=== PATIENT | female | born 1955 | race Hispanic/Latino ===

== ENCOUNTER 2024-08-30 18:36 | Inpatient (IN) | payer MEDICARE, OTHER ==
[~2024-08-30] VITALS: Ht 160 cm; Wt 154.2 kg
[2024-08-30 20:02] VITALS: PULSE 88; RESP 16; TEMP 98
[2024-08-30] MEDS: ONDANSETRON HCL INJ 2MG/ML 2ML 2 MG/ML VIAL IV ONE (20:24)
[2024-08-30] MEDS: LACTATED RINGER'S 1,000 ML INJ ONE (20:25)
[2024-08-30] MEDS: KETOROLAC TROMETHAMINE 30 MG/ML VIAL IV STA (21:13)
[2024-08-30] MEDS: SODIUM CHLORIDE 0.9% 1000ML 1,000 ML IV STA (21:14)
[2024-08-30] MEDS: FAMOTIDINE 20 MG/2 ML VIAL IV ONE (21:14)
[2024-08-30] MEDS: CEFTRIAXONE 1 GM VIAL IV ONE (21:14)
[2024-08-30] MEDS ORDERED: DEXTROSE 50% SYRINGE 50 ML IV PRN (22:45)
[2024-08-30] MEDS ORDERED: DIPHENHYDRAMINE HCL INJ 50 MG/ML VIAL IV PRN (22:45)
[2024-08-30] MEDS ORDERED: HYDRALAZINE HCL 20 MG/ML VIAL IV PRN (22:45)
[2024-08-30] MEDS ORDERED: CLONIDINE HCL 0.2 MG TAB PO PRN (22:45)
[2024-08-30] MEDS: SODIUM CHLORIDE 0.45% 1,000 ML IV SCH (23:24)
[2024-08-31] VITALS (7 sets, daily range): BP systolic 118–134; BP diastolic 55–69; PULSE 65–73; RESP 17–20; TEMP 97.7–98.8; O2SAT 97–100
[2024-08-31 00:11] LABS: CLARITY,URINE TURBID (CLEAR); COLOR,URINE RED (YELLOW); LEUKOCYTE ESTERASE ,URINE LARGE (NEGATIVE); PH,URINE 6 (5 - 7)
[2024-08-31 00:12] LABS: BACTERIA,URINE MANY /HPF; BILIRUBIN,URINE LARGE (NEGATIVE); EPITHELIAL CELLS,URINE FEW /LPF; GLUCOSE, URINE NEGATIVE (NEGATIVE); KETONES,URINE 1+ (NEGATIVE); NITRITE,URINE NEGATIVE (NEGATIVE); PROTEIN,URINE DIPSTICK >=300 (NEGATIVE); RBC,URINE >50 /HPF (0-5); WBC,URINE (MAN) 21-50 /HPF (0-5)
[2024-08-31 00:13] LABS: CALCIUM OXALATE CRYSTALS,UR MODERATE (FEW)
[2024-08-31] MEDS: KETOROLAC TROMETHAMINE 30 MG/ML VIAL IV PRN (02:13)
[2024-08-31] MEDS: ZOLPIDEM TARTRATE 5 MG TAB PO PRN (02:14)
[2024-08-31] MEDS ORDERED: NEURONTIN400 MG PO (04:25)
[2024-08-31] MEDS ORDERED: ATORVASTATIN CA20 MG PO (04:30)
[2024-08-31] MEDS ORDERED: OMEPRAZOLE40 MG PO (04:30)
[2024-08-31] MEDS ORDERED: TYLENOL325 MG PO (04:30)
[2024-08-31] MEDS ORDERED: ELIQUIS5 MG PO (04:30)
[2024-08-31] MEDS ORDERED: METOPROLOL SUCC25 MG PO (04:30)
[2024-08-31] MEDS: INSULIN REGULAR, HUMAN 100 UNIT/1 ML SQ SCH (07:30)
[2024-08-31] MEDS ORDERED: SODIUM CHLORIDE 0.45% 1,000 ML IV SCH (08:00)
[2024-08-31 08:30] LABS: BASOPHILS # (AUTO) 0.1 (0.0-0.1); BASOPHILS % 0.7 % (0.0-1.0); EOSINOPHILS # (AUTO) 0.4 (0.0-0.4); EOSINOPHILS % 4.2 % (0.0-6.0); HEMOGLOBIN 13.6 g/dL (12.0-16.0); LYMPHOCYTES # (AUTO) 2.2 (1.0-3.2); LYMPHOCYTES % 24.6 % (18.0-39.1); MEAN CORPUSCULAR HEMOGLOBIN 28.5 pg (28-32); MEAN CORPUSCULAR HGB CONC 30.9 g/dL (31-35); MEAN CORPUSCULAR VOLUME 92.2 fL (81-99); MONOCYTES # (AUTO) 0.6 (0.2-0.8); MONOCYTES % 6.6 % (4.4-11.3); NEUTROPHILS # (AUTO) 5.7 (2.1-6.9); NEUTROPHILS % 63.5 % (38.7-80.0); PLATELET COUNT 132 x10e3/uL (140-360); RED BLOOD COUNT 4.77 x10e6/uL (3.6-5.1); RED CELL DISTRIBUTION WIDTH 15.1 % (11.7-14.4); WHITE BLOOD COUNT 9.04 x10e3/uL (4.8-10.8)
[2024-08-31] MEDS ORDERED: ONDANSETRON HCL INJ 2MG/ML 2ML 2 MG/ML VIAL IV PRN (08:30)
[2024-08-31] MEDS ORDERED: FAMOTIDINE 20 MG/2 ML VIAL IV SCH (09:00)
[2024-08-31] MEDS ORDERED: CEFTRIAXONE 1 GM VIAL IV SCH (09:00)
[2024-08-31 09:17] LABS: CALCIUM 9.1 mg/dL (8.4-10.2); CREATININE, SERUM 1.1 mg/dL (0.57-1.11)
[2024-08-31] MEDS: GABAPENTIN 300 MG CAP PO SCH (09:28)
[2024-08-31] MEDS: ACETAMINOPHEN 325 MG TAB PO SCH (09:29)
[2024-08-31] MEDS: PANTOPRAZOLE SODIUM 20 MG TABLET.DR PO SCH (09:29)
[2024-08-31] MEDS: METOPROLOL SUCCINATE 25 MG TAB XL PO SCH (09:29)
[2024-08-31] MEDS: ENOXAPARIN SODIUM INJ 100 MG/ML SYR SC SCH (09:30)
[2024-08-31] MEDS: FLUCONAZOLE 100 MG TAB PO ONE (09:30)
[2024-08-31] MEDS: NYSTATIN/TRIAMCINOLONE 30 GM CR TOP SCH (09:30)
[2024-08-31 09:32] LABS: PLATELET ESTIMATE ADEQUATE; PLATELET MORPHOLOGY COMMENT FEW LARGE; RBC MORPHOLOGY COMMENT NORMAL
[2024-08-31] MEDS: SODIUM CHLORIDE 0.9% 250ML 250 ML ONE (09:33)
[2024-08-31] MEDS: ATORVASTATIN 40 MG TAB PO SCH (21:25)
[2024-09-01] VITALS (8 sets, daily range): BP systolic 103–145; BP diastolic 48–74; PULSE 62–89; RESP 17–21; TEMP 97.8–98.4; O2SAT 96–100
[2024-09-01] MEDS: FLUCONAZOLE 100 MG TAB PO SCH (09:57)
[2024-09-01] MEDS: BENZONATATE 100 MG CAP PO PRN (17:26)
[2024-09-01] MEDS: ALBUTEROL/IPRATROPIUM 3 ML NEB NEB SCH (20:12)
[2024-09-02] VITALS (13 sets, daily range): BP systolic 110–131; BP diastolic 37–54; PULSE 68–100; RESP 16–20; TEMP 98.1–98.9; O2SAT 93–100
[2024-09-02 04:58] LABS: BASOPHILS % 0.4 % (0.0-1.0); EOSINOPHILS # (AUTO) 0.4 (0.0-0.4); EOSINOPHILS % 5.1 % (0.0-6.0); HEMATOCRIT 42.7 % (34.2-44.1); HEMOGLOBIN 13.4 g/dL (12.0-16.0); LYMPHOCYTES # (AUTO) 0.7 (1.0-3.2); LYMPHOCYTES % 8.2 % (18.0-39.1); MEAN CORPUSCULAR HEMOGLOBIN 28.6 pg (28-32); MEAN CORPUSCULAR HGB CONC 31.4 g/dL (31-35); MEAN CORPUSCULAR VOLUME 91.2 fL (81-99); MONOCYTES # (AUTO) 0.6 (0.2-0.8); MONOCYTES % 6.7 % (4.4-11.3); NEUTROPHILS # (AUTO) 6.5 (2.1-6.9); NEUTROPHILS % 79.2 % (38.7-80.0); PLATELET COUNT 153 x10e3/uL (140-360); RED BLOOD COUNT 4.68 x10e6/uL (3.6-5.1); RED CELL DISTRIBUTION WIDTH 14.9 % (11.7-14.4); WHITE BLOOD COUNT 8.21 x10e3/uL (4.8-10.8)
[2024-09-02 05:23] LABS: CALCIUM 9.1 mg/dL (8.4-10.2); CREATININE, SERUM 1.14 mg/dL (0.57-1.11)
[2024-09-03] VITALS (13 sets, daily range): BP systolic 108–127; BP diastolic 39–67; PULSE 73–98; RESP 16–20; TEMP 97.7–100; O2SAT 94–100
[2024-09-03 05:18] LABS: ANION GAP 11.9 mmol/L (8-16); CALCIUM 8.9 mg/dL (8.4-10.2); CREATININE, SERUM 1.08 mg/dL (0.57-1.11); POTASSIUM 3.9 mmol/L (3.5-5.1)
[2024-09-03] MEDS ORDERED: LIDOCAINE HCL 2% LOCAL INJ 5 ML SDV VIAL INJ ONE (06:36)
[2024-09-03] MEDS ORDERED: PROPOFOL IV EMULSION 10 MG/ML 20 ML VIAL ONE ×2 (06:36→07:02)
[2024-09-03] MEDS ORDERED: ROCURONIUM BROMIDE 1 ML IV ONE (06:54)
[2024-09-03] MEDS ORDERED: FENTANYL CITRATE/PF 100MCG/2 ML INJ ONE ×2 (06:54→07:18)
[2024-09-03] MEDS ORDERED: SUCCINYLCHOLINE CHLORIDE 20 MG/ML 10ML VIAL ONE (06:54)
[2024-09-03] MEDS ORDERED: ONDANSETRON HCL INJ 2MG/ML 2ML 2 MG/ML VIAL ONE (07:07)
[2024-09-03] MEDS ORDERED: ACETAMINOPHEN 1000 MG/100 ML 100 ML IV ONE (07:07)
[2024-09-03] MEDS ORDERED: PHENYLEPHRINE HCL 1% 10 MG/ML VIAL ONE (07:15)
[2024-09-03] MEDS ORDERED: SEVOFLURANE INHAL SOLN 250 ML PEN BTL ONE (07:15)
[2024-09-03] MEDS ORDERED: SODIUM CHLORIDE 0.9% INJ 10 ML VIAL ONE (07:15)
[2024-09-03] MEDS ORDERED: EPHEDRINE SULFATE INJ 50 MG/ML VIAL ONE (07:27)
[2024-09-03] MEDS: GABAPENTIN 300 MG CAP PO SCH (22:12)
[2024-09-03] MEDS: NYSTATIN/TRIAMCINOLONE 30 GM CR TOP SCH (22:13)
[2024-09-04] VITALS (10 sets, daily range): BP systolic 99–114; BP diastolic 44–92; PULSE 75–123; RESP 16–25; TEMP 98–102; O2SAT 94–100
[2024-09-04] MEDS: ACETAMINOPHEN 325 MG TAB PO PRN (03:00)
[2024-09-04] MEDS ORDERED: ALBUTEROL/IPRATROPIUM 3 ML NEB NEB PRN (08:30)
[2024-09-04] MEDS ORDERED: HYDROCODONE/APAP 10MG-325MG TAB PO PRN (08:30)
[2024-09-04] MEDS: ALBUTEROL/IPRATROPIUM 3 ML NEB NEB SCH (09:33)
[2024-09-04] MEDS: KETOROLAC TROMETHAMINE 30 MG/ML VIAL IV PRN (10:40)
[2024-09-05] VITALS (10 sets, daily range): BP systolic 109–152; BP diastolic 43–46; PULSE 72–83; RESP 18–20; TEMP 98–98.8; O2SAT 93–99
[2024-09-05 05:03] LABS: BASOPHILS % 0.2 % (0.0-1.0); EOSINOPHILS # (AUTO) 0.1 (0.0-0.4); EOSINOPHILS % 3.3 % (0.0-6.0); HEMATOCRIT 38.1 % (34.2-44.1); HEMOGLOBIN 11.7 g/dL (12.0-16.0); LYMPHOCYTES # (AUTO) 0.9 (1.0-3.2); LYMPHOCYTES % 20.4 % (18.0-39.1); MEAN CORPUSCULAR HEMOGLOBIN 28.4 pg (28-32); MEAN CORPUSCULAR HGB CONC 30.7 g/dL (31-35); MEAN CORPUSCULAR VOLUME 92.5 fL (81-99); MONOCYTES # (AUTO) 0.4 (0.2-0.8); NEUTROPHILS # (AUTO) 2.8 (2.1-6.9); NEUTROPHILS % 65.6 % (38.7-80.0); PLATELET COUNT 122 x10e3/uL (140-360); RED BLOOD COUNT 4.12 x10e6/uL (3.6-5.1); RED CELL DISTRIBUTION WIDTH 15.9 % (11.7-14.4); WHITE BLOOD COUNT 4.21 x10e3/uL (4.8-10.8)
[2024-09-05 05:26] LABS: CALCIUM 8.8 mg/dL (8.4-10.2); CREATININE, SERUM 1.03 mg/dL (0.57-1.11); POTASSIUM 4.5 mmol/L (3.5-5.1)
[2024-09-05 05:41] LABS: ANION GAP 13.5 mmol/L (8-16)
[2024-09-05] MEDS: APIXABAN 5 MG TABLET PO SCH (10:36)
[2024-09-05] MEDS: ZOLPIDEM TARTRATE 5 MG TAB PO PRN (21:21)
[2024-09-06 04:46] VITALS: BP 151/71; PULSE 76; RESP 20; TEMP 97.3; O2SAT 94
[2024-09-06 08:11] VITALS: BP 132/59; PULSE 70; RESP 18; TEMP 98.7; O2SAT 94
[2024-09-06 08:52] VITALS: PULSE 70; RESP 18; O2SAT 94
[2024-09-06 09:00] VITALS: BP 132/54; PULSE 70; RESP 18; TEMP 97.7; O2SAT 94
[2024-09-06 09:07] VITALS: PULSE 70; RESP 18; O2SAT 98
== END 2024-09-06 14:41 | disposition home or self-care (01) | DRG 699 ==
LOC: FSED 18:39 → ERHOLD 20:48 → MED/SURG 22:47
PROVIDERS: ADMIT Internal Medicine; ATTEND Internal Medicine
PROC: BT161ZZ Fluoroscopy of Right Ureter using Low Osmolar Contrast (ICD-10-PCS; 2024-09-03)
PROC: 0TF68ZZ Fragmentation in Right Ureter, Via Natural or Artificial Opening Endoscopic (ICD-10-PCS; principal; 2024-09-03 06:56)
PROC: 0TP98DZ Removal of Intraluminal Device from Ureter, Via Natural or Artificial Opening Endoscopic (ICD-10-PCS; 2024-09-03 06:56)
DX: T83.593A Infection and inflammatory reaction due to other urinary stents, initial encounter (principal); L03.115 Cellulitis of right lower limb; E66.01 Morbid (severe) obesity due to excess calories; Z68.44 Body mass index [BMI] 60.0-69.9, adult; N12 Tubulo-interstitial nephritis, not specified as acute or chronic; N13.6 Pyonephrosis; E11.42 Type 2 diabetes mellitus with diabetic polyneuropathy; B96.20 Unspecified Escherichia coli [E. coli] as the cause of diseases classified elsewhere; I10 Essential (primary) hypertension; E87.5 Hyperkalemia; R31.0 Gross hematuria; I89.0 Lymphedema, not elsewhere classified; R32 Unspecified urinary incontinence; I87.8 Other specified disorders of veins; N28.89 Other specified disorders of kidney and ureter; R53.81 Other malaise; Y84.6 Urinary catheterization as the cause of abnormal reaction of the patient, or of later complication, without mention of misadventure at the time of the procedure; Z79.01 Long term (current) use of anticoagulants; Z88.1 Allergy status to other antibiotic agents; Z88.2 Allergy status to sulfonamides; Z91.198 Patient's noncompliance with other medical treatment and regimen for other reason
CPT/HCPCS: 36415; 74176; 74420; 80048; 80053; 81001; 81003; 82948; 85025; 87040; 87086; 87186; 94640; 94799; 96372; 96374; 99252; 99284; C1758; C1769; J0330; J0696; J1650; J1885; J2003; J2371; J2405; J7030; J7050

== ENCOUNTER 2024-09-22 19:07 | Emergency (ER) | payer MEDICARE, OTHER ==
[~2024-09-22] VITALS: Ht 160 cm; Wt 154.2 kg
[~2024-09-22 19:07] MED LIST: ATORVASTATIN CA20 MG PO; ELIQUIS5 MG PO; METOPROLOL SUCC25 MG PO; NEURONTIN400 MG PO; OMEPRAZOLE40 MG PO; TYLENOL325 MG PO
[2024-09-22 19:30] VITALS: PULSE 97; RESP 20; TEMP 98.2
[2024-09-22] MEDS ORDERED: CEFDINIR300 MG PO (19:50)
[2024-09-22 19:56] VITALS: BP 132/60; O2SAT 100
== END 2024-09-22 19:55 | disposition home or self-care (01) ==
LOC: FSED 19:51
DX: R35.0 Frequency of micturition (principal); N39.0 Urinary tract infection, site not specified; I10 Essential (primary) hypertension; E11.40 Type 2 diabetes mellitus with diabetic neuropathy, unspecified; E03.9 Hypothyroidism, unspecified; E78.5 Hyperlipidemia, unspecified; M19.09 Primary osteoarthritis, other specified site; M06.9 Rheumatoid arthritis, unspecified; E66.9 Obesity, unspecified; Z86.718 Personal history of other venous thrombosis and embolism
CPT/HCPCS: 81003; 99282

== ENCOUNTER 2024-10-31 10:39 | Inpatient (IN) | payer MEDICARE, OTHER ==
[~2024-10-31] VITALS: Ht 152.4 cm; Wt 158.8 kg
[2024-10-31] VITALS (14 sets, daily range): BP systolic 85–116; BP diastolic 37–85; PULSE 81–100; RESP 12–19; TEMP 98.7–102; O2SAT 90–97
[~2024-10-31 10:39] MED LIST changes: +CEFDINIR300 MG PO
[2024-10-31] MEDS ORDERED: IOPAMIDOL 370 MG/ML 100 ML INFUS..BTL INJ ONE (10:58)
[2024-10-31] MEDS ORDERED: SODIUM CHLORIDE 0.9% 100 ML ONE (10:58)
[2024-10-31 11:54] LABS: HEMATOCRIT 47.4 % (34.2-44.1); HEMOGLOBIN 14.9 g/dL (12.0-16.0); RED BLOOD COUNT 5.31 x10e6/uL (3.6-5.1); WHITE BLOOD COUNT 3.29 x10e3/uL (4.8-10.8)
[2024-10-31 11:55] LABS: BASOPHILS % 0.3 % (0.0-1.0); EOSINOPHILS % 0.9 % (0.0-6.0); LYMPHOCYTES # (AUTO) 0.6 (1.0-3.2); MEAN CORPUSCULAR HEMOGLOBIN 28.1 pg (28-32); MEAN CORPUSCULAR HGB CONC 31.4 g/dL (31-35); MEAN CORPUSCULAR VOLUME 89.3 fL (81-99); MONOCYTES % 0.3 % (4.4-11.3); NEUTROPHILS # (AUTO) 2.6 (2.1-6.9); PLATELET COUNT 231 x10e3/uL (140-360); RED CELL DISTRIBUTION WIDTH 14.2 % (11.7-14.4)
[2024-10-31 12:12] LABS: ALBUMIN/GLOBULIN RATIO 0.9 (0.8-2.0); ANION GAP 24.3 mmol/L (8-16); BILIRUBIN,TOTAL 0.7 mg/dL (0.2-1.2); CALCIUM 9.3 mg/dL (8.4-10.2); CREATININE, SERUM 1.41 mg/dL (0.57-1.11); TOTAL PROTEIN 6.3 g/dL (6.5-8.1)
[2024-10-31 12:18] LABS: POTASSIUM 3.3 mmol/L (3.5-5.1)
[2024-10-31 12:21] LABS: INR 1.08; PARTIAL THROMBOPLASTIN TIME 21.1 seconds (23.8-35.5); PROTHROMBIN TIME 14.7 seconds (11.9-14.5)
[2024-10-31 12:43] LABS: BAND NEUTROPHILS % (MANUAL) 20 %; EOSINOPHILS % (MANUAL) 3 % (0-7); LYMPHOCYTES % (MANUAL) 20 % (19-48); METAMYELOCYTES % (MANUAL) 3 % (0-0); NEUTROPHILS % (MANUAL) 51 % (40-74); REACTIVE LYMPHOCYTES 3
[2024-10-31 12:44] LABS: PLATELET ESTIMATE ADEQUATE; PLATELET MORPHOLOGY COMMENT NORMAL; RBC MORPHOLOGY COMMENT NORMAL
[2024-10-31] MEDS: SODIUM CHLORIDE 0.9% 1000ML 1,000 ML IV ONE (13:00)
[2024-10-31 13:04] LABS: ETHANOL < 10.0 mg/dL (0.0-10.0); SALICYLATE < 5.0 mg/dL (0-30)
[2024-10-31 13:07] LABS: ABG HCO3 12 mmol/L (22-26); ABG PCO2 22 mmHg (35-45); ABG PH 7.33 (7.35-7.45); ABG PO2 57 mmHg (80-105); ABG TCO2 13
[2024-10-31] MEDS: CEFTRIAXONE 2 GM in SODIUM CHLORIDE 0.9% 100 ML IV ONE (14:25)
[2024-10-31 14:28] LABS: BILIRUBIN,URINE 1+ (NEGATIVE); CLARITY,URINE CLOUDY (CLEAR); COLOR,URINE AMBER (YELLOW); GLUCOSE, URINE NEGATIVE (NEGATIVE); KETONES,URINE TRACE (NEGATIVE); LEUKOCYTE ESTERASE ,URINE LARGE (NEGATIVE); NITRITE,URINE NEGATIVE (NEGATIVE); PH,URINE 5.5 (5 - 7); PROTEIN,URINE DIPSTICK >=300 (NEGATIVE); URINE UROBILINOGEN 0.2 mg/dL (0.2 - 1)
[2024-10-31 14:36] LABS: AMORPHOUS SEDIMENT,URINE MANY; BACTERIA,URINE MANY /HPF; EPITHELIAL CELLS,URINE FEW /LPF; RBC,URINE >50 /HPF (0-5); WBC,URINE (MAN) >50 /HPF (0-5)
[2024-10-31] MEDS: SODIUM CHLORIDE 0.9% IV SCH (14:48)
[2024-10-31] MEDS: MUPIROCIN 2% OINT 22 GM TUBE TOP SCH (16:30)
[2024-10-31] MEDS: SODIUM CHLORIDE 0.9% 1000ML 1,000 ML IV SCH (16:30)
[2024-10-31] MEDS ORDERED: ACETAMINOPHEN 325 MG TAB PO PRN (16:45)
[2024-10-31] MEDS ORDERED: DEXTROSE 50% SYRINGE 50 ML IV PRN ×2 (16:45→17:15)
[2024-10-31] MEDS ORDERED: ALBUTEROL/IPRATROPIUM 3 ML NEB NEB PRN (17:15)
[2024-10-31] MEDS ORDERED: SIMETHICONE 80 MG CHEW PO PRN (17:15)
[2024-10-31] MEDS ORDERED: HYDRALAZINE HCL 20 MG/ML VIAL IV PRN (17:15)
[2024-10-31] MEDS ORDERED: BENZONATATE 100 MG CAP PO PRN (17:15)
[2024-10-31] MEDS ORDERED: POTASSIUM CHLORIDE 20 MEQ TAB CR PO PRN (17:15)
[2024-10-31] MEDS: VANCOMYCIN 1.25GM/250 ML (PEG) 250 ML IV ONE (18:16)
[2024-10-31] MEDS: LACTATED RINGER'S 1,000 ML INJ ONE (18:16)
[2024-10-31] MEDS: POTASSIUM CHLORIDE 20MEQ/100ML 200 ML IV ONE (18:16)
[2024-10-31] MEDS: ACETAMINOPHEN 325 MG TAB PO PRN (18:18)
[2024-10-31] MEDS: ONDANSETRON HCL INJ 2MG/ML 2ML 2 MG/ML VIAL IV PRN (18:33)
[2024-10-31] MEDS: HYDROMORPHONE 1MG/1ML INJ IV PRN (18:33)
[2024-10-31] MEDS: INSULIN REGULAR, HUMAN 100 UNIT/1 ML SQ SCH (20:07)
[2024-10-31] MEDS: ATORVASTATIN 20 MG TAB PO SCH (20:16)
[2024-10-31] MEDS: NOREPINEPHRINE 8 MG/D5W 250 ML 250 ML IV SCH (20:46)
[2024-10-31] MEDS ORDERED: MUPIROCIN 2% OINT 22 GM TUBE TOP SCH (21:00)
[2024-11-01] VITALS (53 sets, daily range): BP systolic 84–167; BP diastolic 26–85; PULSE 72–101; RESP 9–21; TEMP 98.6–100.7; O2SAT 79–99
[2024-11-01] MEDS ORDERED: VASOPRESSIN 60 UNIT in DEXTROSE 5% 50ML 50 ML IV SCH (02:30)
[2024-11-01] MEDS ORDERED: ALBUMIN 5% 0.05 GM/ML BTL IV ONE (02:30)
[2024-11-01] MEDS ORDERED: SODIUM BICARBONATE 8.4% SYRING 150 ML in STERILE WATER IV SOLN 1,000 ML IV SCH (02:45)
[2024-11-01] MEDS ORDERED: FUROSEMIDE INJ 10 MG/ML 4 ML VIAL IV ONE (02:45)
[2024-11-01] MEDS: ALBUMIN 5% 0.05 GM/ML BTL IV ONE (02:54)
[2024-11-01] MEDS: FUROSEMIDE INJ 10 MG/ML 4 ML VIAL IV ONE (02:55)
[2024-11-01] MEDS: VASOPRESSIN 60 UNIT in DEXTROSE 5% 50ML 50 ML IV SCH (03:18)
[2024-11-01] MEDS: MEROPENEM 1 GM in SODIUM CHLORIDE 0.9% 100 ML IV SCH (03:18)
[2024-11-01] MEDS: SODIUM BICARBONATE 8.4% SYRING 150 ML in DEXTROSE 5% 1,000 ML IV SCH (03:19)
[2024-11-01] MEDS: SODIUM BICARBONATE 8.4% SYRING 150 ML ONE (04:32)
[2024-11-01] MEDS: DEXTROSE 5% 1,000 ML IV ONE (04:32)
[2024-11-01 06:39] LABS: BASOPHILS # (AUTO) 0.2 (0.0-0.1); BASOPHILS % 0.5 % (0.0-1.0); HEMOGLOBIN 14.3 g/dL (12.0-16.0); LYMPHOCYTES % 2.8 % (18.0-39.1); MEAN CORPUSCULAR HEMOGLOBIN 28.3 pg (28-32); MEAN CORPUSCULAR HGB CONC 31.8 g/dL (31-35); MEAN CORPUSCULAR VOLUME 89.1 fL (81-99); MONOCYTES # (AUTO) 1.3 (0.2-0.8); MONOCYTES % 3.4 % (4.4-11.3); NEUTROPHILS # (AUTO) 32.5 (2.1-6.9); NEUTROPHILS % 88.1 % (38.7-80.0); PLATELET COUNT 148 x10e3/uL (140-360); RED BLOOD COUNT 5.05 x10e6/uL (3.6-5.1); RED CELL DISTRIBUTION WIDTH 14.8 % (11.7-14.4); WHITE BLOOD COUNT 36.87 x10e3/uL (4.8-10.8)
[2024-11-01 07:01] LABS: ALBUMIN 2.7 g/dL (3.5-5.0); ANION GAP 18.8 mmol/L (8-16); BILIRUBIN,TOTAL 1.5 mg/dL (0.2-1.2); CALCIUM 8.5 mg/dL (8.4-10.2); CREATININE, SERUM 1.62 mg/dL (0.57-1.11); POTASSIUM 4.8 mmol/L (3.5-5.1); TOTAL PROTEIN 5.5 g/dL (6.5-8.1)
[2024-11-01 07:34] LABS: MAGNESIUM 1.3 MG/DL (1.3-2.1)
[2024-11-01] MEDS ORDERED: PANTOPRAZOLE SOD 40 MG TABEC PO SCH (09:00)
[2024-11-01 09:35] LABS: CDIFF AG QUIK CHEK NEGATIVE (NEGATIVE); CDIFF TOX QUIK CHEK NEGATIVE (NEGATIVE)
[2024-11-01 10:02] LABS: BAND NEUTROPHILS % (MANUAL) 8 %; LYMPHOCYTES % (MANUAL) 1 % (19-48); MONOCYTES % (MANUAL) 4 % (3.4-9.0); NEUTROPHILS % (MANUAL) 87 % (40-74)
[2024-11-01 10:03] LABS: PLATELET MORPHOLOGY COMMENT NORMAL; RBC MORPHOLOGY COMMENT NORMAL
[2024-11-01 10:12] LABS: PLATELET ESTIMATE SLIGHTLY DECREASED
[2024-11-01] MEDS ORDERED: MAGNESIUM SULFATE 2GM/50ML 50 ML IV ONE (10:15)
[2024-11-01] MEDS: DIPHENHYDRAMINE HCL 25 MG CAP PO PRN (11:38)
[2024-11-01] MEDS: MAGNESIUM SULF 1GRAM/DEXTROSE 100 ML IV SCH (11:55)
[2024-11-01] MEDS ORDERED: LIDOCAINE HCL 1% 30ML-PF VIAL ONE (12:44)
[2024-11-01] MEDS ORDERED: IOPAMIDOL 370 MG/ML 100 ML INFUS..BTL INJ ONE (12:45)
[2024-11-01] MEDS ORDERED: SODIUM CHLORIDE 0.9% 250ML 250 ML ONE ×2 (12:45→14:26)
[2024-11-01] MEDS: MAGNESIUM SULFATE 2GM/50ML 50 ML IV ONE (13:15)
[2024-11-01] MEDS: GENTAMICIN SULFATE 400 MG in SODIUM CHLORIDE 0.9% 100 ML IV SCH (13:44)
[2024-11-01] MEDS ORDERED: FENTANYL CITRATE/PF 100MCG/2 ML INJ ONE (14:26)
[2024-11-01] MEDS ORDERED: CEFTRIAXONE 1 GM VIAL ONE (14:26)
[2024-11-01] MEDS ORDERED: MIDAZOLAM HCL 2 MG/2 ML VIAL ONE (14:38)
[2024-11-01] MEDS: VASOPRESSIN 60 UNIT in DEXTROSE 5% 50ML 57 ML IV SCH (16:06)
[2024-11-01] MEDS: DIPHENHYDRAMINE HCL INJ 50 MG/ML VIAL IV PRN (16:27)
[2024-11-01] MEDS: ENOXAPARIN SOD INJ 40 MG/0.4 ML SYR SC SCH (17:00)
[2024-11-02] VITALS (85 sets, daily range): BP systolic 85–168; BP diastolic 30–112; PULSE 54–100; RESP 4–23; TEMP 97.9–98.8; O2SAT 81–98
[2024-11-02 07:19] LABS: ALBUMIN 2.1 g/dL (3.5-5.0); ALBUMIN/GLOBULIN RATIO 0.8 (0.8-2.0); ANION GAP 14.6 mmol/L (8-16); BILIRUBIN,TOTAL 1.1 mg/dL (0.2-1.2); CALCIUM 7.8 mg/dL (8.4-10.2); CREATININE, SERUM 1.08 mg/dL (0.57-1.11); POTASSIUM 3.6 mmol/L (3.5-5.1); TOTAL PROTEIN 4.7 g/dL (6.5-8.1)
[2024-11-02 07:24] LABS: BASOPHILS # (AUTO) 0.2 (0.0-0.1); BASOPHILS % 0.5 % (0.0-1.0); EOSINOPHILS % 0.1 % (0.0-6.0); HEMATOCRIT 37.8 % (34.2-44.1); HEMOGLOBIN 12.2 g/dL (12.0-16.0); LYMPHOCYTES % 3.7 % (18.0-39.1); MEAN CORPUSCULAR HGB CONC 32.3 g/dL (31-35); MEAN CORPUSCULAR VOLUME 86.9 fL (81-99); MONOCYTES # (AUTO) 1.2 (0.2-0.8); MONOCYTES % 4.1 % (4.4-11.3); NEUTROPHILS # (AUTO) 23.1 (2.1-6.9); NEUTROPHILS % 83.2 % (38.7-80.0); PLATELET COUNT 111 x10e3/uL (140-360); RED BLOOD COUNT 4.35 x10e6/uL (3.6-5.1); RED CELL DISTRIBUTION WIDTH 14.6 % (11.7-14.4); WHITE BLOOD COUNT 27.76 x10e3/uL (4.8-10.8)
[2024-11-02] MEDS: POTASSIUM CHLORIDE 20MEQ/100ML 100 ML IV SCH (07:39)
[2024-11-02] MEDS: HYDROMORPHONE 1MG/1ML INJ IV ONE (07:39)
[2024-11-02] MEDS: LACTATED RINGER'S 1,000 ML INJ SCH (08:10)
[2024-11-02 12:33] LABS: BAND NEUTROPHILS % (MANUAL) 2 %; EOSINOPHILS % (MANUAL) 2 % (0-7); LYMPHOCYTES % (MANUAL) 2 % (19-48); MONOCYTES % (MANUAL) 5 % (3.4-9.0); NEUTROPHILS % (MANUAL) 89 % (40-74)
[2024-11-02 12:34] LABS: PLATELET ESTIMATE SLIGHTLY DECREASED; PLATELET MORPHOLOGY COMMENT NORMAL; RBC MORPHOLOGY COMMENT NORMAL
[2024-11-03] VITALS (55 sets, daily range): BP systolic 94–157; BP diastolic 42–92; PULSE 45–103; RESP 7–25; TEMP 98.5–99.9; O2SAT 80–98
[2024-11-03 07:06] LABS: BASOPHILS # (AUTO) 0.1 (0.0-0.1); BASOPHILS % 0.4 % (0.0-1.0); EOSINOPHILS # (AUTO) 0.3 (0.0-0.4); EOSINOPHILS % 1.6 % (0.0-6.0); HEMATOCRIT 34.3 % (34.2-44.1); HEMOGLOBIN 11.2 g/dL (12.0-16.0); LYMPHOCYTES # (AUTO) 1.1 (1.0-3.2); LYMPHOCYTES % 5.5 % (18.0-39.1); MEAN CORPUSCULAR HEMOGLOBIN 28.1 pg (28-32); MEAN CORPUSCULAR HGB CONC 32.7 g/dL (31-35); MEAN CORPUSCULAR VOLUME 86.2 fL (81-99); MONOCYTES # (AUTO) 0.7 (0.2-0.8); MONOCYTES % 3.5 % (4.4-11.3); NEUTROPHILS # (AUTO) 18.3 (2.1-6.9); NEUTROPHILS % 88.2 % (38.7-80.0); PLATELET COUNT 84 x10e3/uL (140-360); RED BLOOD COUNT 3.98 x10e6/uL (3.6-5.1); RED CELL DISTRIBUTION WIDTH 14.1 % (11.7-14.4); WHITE BLOOD COUNT 20.69 x10e3/uL (4.8-10.8)
[2024-11-03] MEDS: FENTANYL CITRATE/PF 100MCG/2 ML INJ IV PRN (07:12)
[2024-11-03 07:29] LABS: ANION GAP 11.8 mmol/L (8-16); CREATININE, SERUM 0.77 mg/dL (0.57-1.11); POTASSIUM 3.8 mmol/L (3.5-5.1)
[2024-11-03] MEDS: CEFTRIAXONE 2 GM in SODIUM CHLORIDE 0.9% 100 ML IV SCH (08:41)
[2024-11-03] MEDS: FUROSEMIDE INJ 10 MG/ML 2 ML VIAL IV ONE (09:02)
[2024-11-03] MEDS: KETOROLAC TROMETHAMINE 30 MG/ML VIAL IV STA (09:02)
[2024-11-03 09:18] LABS: EOSINOPHILS % (MANUAL) 1 % (0-7); LYMPHOCYTES % (MANUAL) 5 % (19-48); MONOCYTES % (MANUAL) 5 % (3.4-9.0); NEUTROPHILS % (MANUAL) 89 % (40-74); PLATELET ESTIMATE MODERATELY DECREASED; PLATELET MORPHOLOGY COMMENT NORMAL; RBC MORPHOLOGY COMMENT NORMAL
[2024-11-03] MEDS: KETOROLAC TROMETHAMINE 30 MG/ML VIAL IM PRN (17:23)
[2024-11-04] VITALS (28 sets, daily range): BP systolic 86–168; BP diastolic 35–78; PULSE 71–89; RESP 9–25; TEMP 98.4–99.9; O2SAT 74–98
[2024-11-04 07:12] LABS: BASOPHILS # (AUTO) 0.1 (0.0-0.1); BASOPHILS % 0.4 % (0.0-1.0); EOSINOPHILS # (AUTO) 0.4 (0.0-0.4); EOSINOPHILS % 3.5 % (0.0-6.0); HEMATOCRIT 35.2 % (34.2-44.1); HEMOGLOBIN 11.3 g/dL (12.0-16.0); LYMPHOCYTES # (AUTO) 1.3 (1.0-3.2); LYMPHOCYTES % 11.4 % (18.0-39.1); MEAN CORPUSCULAR HEMOGLOBIN 27.6 pg (28-32); MEAN CORPUSCULAR HGB CONC 32.1 g/dL (31-35); MEAN CORPUSCULAR VOLUME 85.9 fL (81-99); MONOCYTES # (AUTO) 0.7 (0.2-0.8); MONOCYTES % 6.4 % (4.4-11.3); NEUTROPHILS # (AUTO) 8.8 (2.1-6.9); NEUTROPHILS % 77.8 % (38.7-80.0); PLATELET COUNT 98 x10e3/uL (140-360); RED CELL DISTRIBUTION WIDTH 13.8 % (11.7-14.4); WHITE BLOOD COUNT 11.28 x10e3/uL (4.8-10.8)
[2024-11-04 07:47] LABS: ANION GAP 12.9 mmol/L (8-16); CALCIUM 8.7 mg/dL (8.4-10.2); CREATININE, SERUM 0.83 mg/dL (0.57-1.11); POTASSIUM 3.9 mmol/L (3.5-5.1)
[2024-11-04] MEDS: APIXABAN 5 MG TABLET PO SCH (08:19)
[2024-11-05] VITALS (20 sets, daily range): BP systolic 118–181; BP diastolic 45–72; PULSE 64–114; RESP 8–27; TEMP 98–98.9; O2SAT 81–100
[2024-11-05] MEDS: HYDROMORPHONE 1MG/1ML INJ IV STA (20:03)
[2024-11-06] VITALS (21 sets, daily range): BP systolic 84–190; BP diastolic 34–124; PULSE 74–114; RESP 13–20; TEMP 98.1–99.5; O2SAT 90–100
[2024-11-06] MEDS: PHENAZOPYRIDINE HCL 100 MG TAB PO SCH (03:15)
[2024-11-06] MEDS: SOLIFENACIN SUCCINATE 5 MG TAB PO ONE (04:20)
[2024-11-06 06:40] LABS: BASOPHILS % 0.5 % (0.0-1.0); EOSINOPHILS # (AUTO) 0.4 (0.0-0.4); EOSINOPHILS % 4.2 % (0.0-6.0); HEMATOCRIT 33.8 % (34.2-44.1); LYMPHOCYTES # (AUTO) 1.5 (1.0-3.2); LYMPHOCYTES % 18.2 % (18.0-39.1); MEAN CORPUSCULAR HEMOGLOBIN 28.1 pg (28-32); MEAN CORPUSCULAR HGB CONC 32.5 g/dL (31-35); MEAN CORPUSCULAR VOLUME 86.2 fL (81-99); MONOCYTES % 12.2 % (4.4-11.3); NEUTROPHILS # (AUTO) 5.1 (2.1-6.9); NEUTROPHILS % 60.5 % (38.7-80.0); PLATELET COUNT 141 x10e3/uL (140-360); RED BLOOD COUNT 3.92 x10e6/uL (3.6-5.1); RED CELL DISTRIBUTION WIDTH 14.2 % (11.7-14.4); WHITE BLOOD COUNT 8.37 x10e3/uL (4.8-10.8)
[2024-11-06 07:06] LABS: ANION GAP 14.6 mmol/L (8-16); CALCIUM 8.8 mg/dL (8.4-10.2); CREATININE, SERUM 1.17 mg/dL (0.57-1.11); POTASSIUM 4.6 mmol/L (3.5-5.1)
[2024-11-06] MEDS: LIDOCAINE 4% PATCH TP PRN (20:03)
[2024-11-06] MEDS: HYDROMORPHONE 1MG/1ML INJ IV PRN (23:45)
[2024-11-07] VITALS (26 sets, daily range): BP systolic 121–150; BP diastolic 39–127; PULSE 73–94; RESP 9–19; TEMP 97.5–99; O2SAT 90–100
[2024-11-07 06:20] LABS: BASOPHILS % 0.4 % (0.0-1.0); EOSINOPHILS # (AUTO) 0.5 (0.0-0.4); EOSINOPHILS % 4.8 % (0.0-6.0); HEMATOCRIT 31.4 % (34.2-44.1); HEMOGLOBIN 10.2 g/dL (12.0-16.0); LYMPHOCYTES # (AUTO) 1.5 (1.0-3.2); LYMPHOCYTES % 15.5 % (18.0-39.1); MEAN CORPUSCULAR HEMOGLOBIN 28.3 pg (28-32); MEAN CORPUSCULAR HGB CONC 32.5 g/dL (31-35); MONOCYTES # (AUTO) 0.9 (0.2-0.8); MONOCYTES % 9.5 % (4.4-11.3); NEUTROPHILS # (AUTO) 6.4 (2.1-6.9); NEUTROPHILS % 66.1 % (38.7-80.0); PLATELET COUNT 168 x10e3/uL (140-360); RED BLOOD COUNT 3.61 x10e6/uL (3.6-5.1); RED CELL DISTRIBUTION WIDTH 14.2 % (11.7-14.4); WHITE BLOOD COUNT 9.75 x10e3/uL (4.8-10.8)
[2024-11-07 06:38] LABS: ALBUMIN/GLOBULIN RATIO 0.7 (0.8-2.0); ANION GAP 14.4 mmol/L (8-16); BILIRUBIN,TOTAL 0.6 mg/dL (0.2-1.2); CALCIUM 8.6 mg/dL (8.4-10.2); CREATININE, SERUM 1.83 mg/dL (0.57-1.11); TOTAL PROTEIN 4.7 g/dL (6.5-8.1)
[2024-11-07 06:41] LABS: POTASSIUM 5.4 mmol/L (3.5-5.1)
[2024-11-07] MEDS: DOCUSATE SODIUM 100 MG CAP PO SCH (08:53)
[2024-11-07] MEDS: SOLIFENACIN SUCCINATE 5 MG TAB PO SCH (08:53)
[2024-11-07] MEDS: POLYETHYLENE GLYCOL 3350 17 GM PACK PO SCH (08:53)
[2024-11-07] MEDS: HYDROMORPHONE 1MG/1ML INJ IV PRN (08:55)
[2024-11-07] MEDS: SODIUM CHLORIDE 0.9% 1000ML 1,000 ML IV SCH (14:52)
[2024-11-07 15:28] LABS: FERRITIN 189.42 ng/mL (4.63-204.00)
[2024-11-08] VITALS (15 sets, daily range): BP systolic 119–169; BP diastolic 47–81; PULSE 71–123; RESP 10–20; TEMP 98.1–98.8; O2SAT 88–99
[2024-11-08 06:35] LABS: BASOPHILS % 0.3 % (0.0-1.0); EOSINOPHILS # (AUTO) 0.4 (0.0-0.4); EOSINOPHILS % 4.1 % (0.0-6.0); HEMATOCRIT 29.7 % (34.2-44.1); HEMOGLOBIN 9.5 g/dL (12.0-16.0); LYMPHOCYTES # (AUTO) 1.4 (1.0-3.2); LYMPHOCYTES % 14.3 % (18.0-39.1); MEAN CORPUSCULAR HEMOGLOBIN 27.9 pg (28-32); MEAN CORPUSCULAR VOLUME 87.1 fL (81-99); MONOCYTES # (AUTO) 0.7 (0.2-0.8); NEUTROPHILS # (AUTO) 7.1 (2.1-6.9); NEUTROPHILS % 71.7 % (38.7-80.0); PLATELET COUNT 201 x10e3/uL (140-360); RED BLOOD COUNT 3.41 x10e6/uL (3.6-5.1); RED CELL DISTRIBUTION WIDTH 14.2 % (11.7-14.4); WHITE BLOOD COUNT 9.94 x10e3/uL (4.8-10.8)
[2024-11-08 06:57] LABS: ALBUMIN 1.9 g/dL (3.5-5.0); ALBUMIN/GLOBULIN RATIO 0.7 (0.8-2.0); ANION GAP 12.8 mmol/L (8-16); BILIRUBIN,TOTAL 0.5 mg/dL (0.2-1.2); CALCIUM 8.3 mg/dL (8.4-10.2); CREATININE, SERUM 1.9 mg/dL (0.57-1.11); POTASSIUM 4.8 mmol/L (3.5-5.1); TOTAL PROTEIN 4.5 g/dL (6.5-8.1)
[2024-11-08] MEDS: SODIUM FERRIC GLUCONATE COMPLX 125 MG in SODIUM CHLORIDE 0.9% 100 ML IV SCH (11:30)
[2024-11-09] VITALS (11 sets, daily range): BP systolic 161–183; BP diastolic 50–65; PULSE 76–93; RESP 17–22; TEMP 97.4–99.5; O2SAT 95–100
[2024-11-09 06:30] LABS: BASOPHILS % 0.5 % (0.0-1.0); EOSINOPHILS # (AUTO) 0.2 (0.0-0.4); EOSINOPHILS % 2.8 % (0.0-6.0); HEMATOCRIT 37.3 % (34.2-44.1); HEMOGLOBIN 11.4 g/dL (12.0-16.0); LYMPHOCYTES # (AUTO) 1.6 (1.0-3.2); MEAN CORPUSCULAR HEMOGLOBIN 27.9 pg (28-32); MEAN CORPUSCULAR HGB CONC 30.6 g/dL (31-35); MEAN CORPUSCULAR VOLUME 91.2 fL (81-99); MONOCYTES # (AUTO) 0.6 (0.2-0.8); MONOCYTES % 6.4 % (4.4-11.3); NEUTROPHILS % 69.1 % (38.7-80.0); PLATELET COUNT 153 x10e3/uL (140-360); RED BLOOD COUNT 4.09 x10e6/uL (3.6-5.1); RED CELL DISTRIBUTION WIDTH 14.3 % (11.7-14.4)
[2024-11-09 06:56] LABS: ANION GAP 15.5 mmol/L (8-16); CALCIUM 8.6 mg/dL (8.4-10.2); CREATININE, SERUM 1.89 mg/dL (0.57-1.11); POTASSIUM 4.5 mmol/L (3.5-5.1)
[2024-11-09] MEDS: NIFEDIPINE CR 30 MG TAB PO ONE (17:24)
[2024-11-10] VITALS (7 sets, daily range): BP systolic 141–162; BP diastolic 53–60; PULSE 80–87; RESP 17–20; TEMP 97.7–98.6; O2SAT 94–100
[2024-11-10 09:04] LABS: BILIRUBIN,URINE MODERATE (NEGATIVE); CLARITY,URINE SL CLOUDY (CLEAR); COLOR,URINE RED (YELLOW); GLUCOSE, URINE NEGATIVE (NEGATIVE); KETONES,URINE TRACE (NEGATIVE); LEUKOCYTE ESTERASE ,URINE TRACE (NEGATIVE); NITRITE,URINE NEGATIVE (NEGATIVE); PH,URINE 5.5 (5 - 7); PROTEIN,URINE DIPSTICK 2+ (NEGATIVE); URINE UROBILINOGEN 1 mg/dL (0.2 - 1)
[2024-11-10 09:31] LABS: BACTERIA,URINE RARE /HPF; EPITHELIAL CELLS,URINE RARE /LPF; RBC,URINE >50 /HPF (0-5); TRANSITIONAL EPI CELLS,URINE RARE; WBC,URINE (MAN) 0-5 /HPF (0-5)
[2024-11-10] MEDS: NIFEDIPINE CR 30 MG TAB PO SCH (11:37)
[2024-11-11] VITALS (7 sets, daily range): BP systolic 137–154; BP diastolic 51–72; PULSE 77–92; RESP 16–20; TEMP 97.7–98.6; O2SAT 95–100
[2024-11-11 06:23] LABS: BASOPHILS % 0.3 % (0.0-1.0); EOSINOPHILS # (AUTO) 0.3 (0.0-0.4); HEMATOCRIT 33.5 % (34.2-44.1); HEMOGLOBIN 10.7 g/dL (12.0-16.0); LYMPHOCYTES # (AUTO) 1.6 (1.0-3.2); LYMPHOCYTES % 18.4 % (18.0-39.1); MEAN CORPUSCULAR HEMOGLOBIN 27.4 pg (28-32); MEAN CORPUSCULAR HGB CONC 31.9 g/dL (31-35); MEAN CORPUSCULAR VOLUME 85.9 fL (81-99); MONOCYTES # (AUTO) 0.5 (0.2-0.8); MONOCYTES % 5.6 % (4.4-11.3); NEUTROPHILS # (AUTO) 6.3 (2.1-6.9); NEUTROPHILS % 71.9 % (38.7-80.0); PLATELET COUNT 313 x10e3/uL (140-360); RED CELL DISTRIBUTION WIDTH 14.1 % (11.7-14.4); WHITE BLOOD COUNT 8.77 x10e3/uL (4.8-10.8)
[2024-11-11 06:45] LABS: ANION GAP 15.4 mmol/L (8-16); CALCIUM 8.7 mg/dL (8.4-10.2); CREATININE, SERUM 1.81 mg/dL (0.57-1.11); POTASSIUM 4.4 mmol/L (3.5-5.1)
[2024-11-11] MEDS ORDERED: LIDOCAINE HCL 2% LOCAL INJ 5 ML SDV VIAL INJ ONE (06:47)
[2024-11-11] MEDS ORDERED: PROPOFOL IV EMULSION 10 MG/ML 20 ML VIAL ONE (06:47)
[2024-11-11] MEDS ORDERED: ONDANSETRON HCL INJ 2MG/ML 2ML 2 MG/ML VIAL ONE (06:47)
[2024-11-11] MEDS ORDERED: METOCLOPRAMIDE HCL 10 MG/2ML VIAL ONE (06:47)
[2024-11-11] MEDS ORDERED: SUCCINYLCHOLINE CHLORIDE 20 MG/ML 10ML VIAL ONE (06:47)
[2024-11-11] MEDS ORDERED: FENTANYL CITRATE/PF 100MCG/2 ML INJ ONE (06:47)
[2024-11-11] MEDS ORDERED: PHENYLEPHRINE HCL 1% 10 MG/ML VIAL ONE (07:02)
[2024-11-11] MEDS: FENTANYL CITRATE/PF 100MCG/2 ML INJ ONE (07:40)
[2024-11-11 11:39] LABS: INR 0.92; PROTHROMBIN TIME 12.9 seconds (11.9-14.5)
[2024-11-11] MEDS: HYDROMORPHONE 2MG/ML IV PRN (18:38)
[2024-11-12] VITALS (8 sets, daily range): BP systolic 124–172; BP diastolic 42–61; PULSE 80–90; RESP 16–20; TEMP 97.7–98.6; O2SAT 94–100
[2024-11-12 06:46] LABS: ANION GAP 14.4 mmol/L (8-16); CALCIUM 8.7 mg/dL (8.4-10.2); CREATININE, SERUM 1.52 mg/dL (0.57-1.11); POTASSIUM 4.4 mmol/L (3.5-5.1)
[2024-11-12] MEDS ORDERED: IOPAMIDOL 370 MG/ML 100 ML INFUS..BTL INJ ONE (10:11)
[2024-11-12] MEDS ORDERED: LIDOCAINE HCL 1% 30ML-PF VIAL ONE (10:11)
[2024-11-12] MEDS: MEROPENEM 1 GM in SODIUM CHLORIDE 0.9% 100 ML IV SCH (15:15)
[2024-11-12] MEDS ORDERED: LIDOCAINE HCL 2% LOCAL INJ 5 ML SDV VIAL INJ ONE (15:49)
[2024-11-12] MEDS ORDERED: PROPOFOL IV EMULSION 10 MG/ML 20 ML VIAL ONE (15:49)
[2024-11-12] MEDS ORDERED: ACETAMINOPHEN 1000 MG/100 ML 100 ML IV ONE (15:49)
[2024-11-12] MEDS ORDERED: SEVOFLURANE INHAL SOLN 250 ML PEN BTL ONE (15:49)
[2024-11-12] MEDS ORDERED: FENTANYL CITRATE/PF 100MCG/2 ML INJ ONE (15:49)
[2024-11-12] MEDS ORDERED: SUCCINYLCHOLINE CHLORIDE 20 MG/ML 10ML VIAL ONE (16:12)
[2024-11-12] MEDS ORDERED: ROCURONIUM BROMIDE 1 ML IV ONE (16:14)
[2024-11-12] MEDS ORDERED: FAMOTIDINE 20 MG/2 ML VIAL IV ONE (16:25)
[2024-11-12] MEDS ORDERED: DEXAMETHASONE SOD PHOS INJ 4 MG/ML SDV ONE (16:25)
[2024-11-12] MEDS ORDERED: ONDANSETRON HCL INJ 2MG/ML 2ML 2 MG/ML VIAL ONE (16:25)
[2024-11-12] MEDS ORDERED: SUGAMMADEX SODIUM 200 MG/2 ML VIAL IV ONE (16:50)
[2024-11-12] MEDS ORDERED: KETOROLAC TROMETHAMINE 30 MG/ML VIAL ONE (17:06)
[2024-11-12] MEDS ORDERED: LABETALOL HCL 20 ML ONE (17:17)
[2024-11-12] MEDS: MEROPENEM 1 GM VIAL ONE (18:35)
[2024-11-12] MEDS: SODIUM CHLORIDE 0.9% 0 ML ONE (18:36)
[2024-11-12] MEDS ORDERED: MEROPENEM 1 GM in SODIUM CHLORIDE 0.9% 100 ML IV SCH (22:00)
[2024-11-13] VITALS (10 sets, daily range): BP systolic 104–172; BP diastolic 42–75; PULSE 80–100; RESP 16–22; TEMP 97.7–98.8; O2SAT 90–100
[2024-11-13 04:57] LABS: BASOPHILS % 0.3 % (0.0-1.0); HEMATOCRIT 34.2 % (34.2-44.1); LYMPHOCYTES % 13.3 % (18.0-39.1); MEAN CORPUSCULAR HEMOGLOBIN 27.8 pg (28-32); MEAN CORPUSCULAR HGB CONC 32.2 g/dL (31-35); MEAN CORPUSCULAR VOLUME 86.6 fL (81-99); MONOCYTES # (AUTO) 0.1 (0.2-0.8); MONOCYTES % 1.5 % (4.4-11.3); NEUTROPHILS # (AUTO) 6.2 (2.1-6.9); NEUTROPHILS % 84.2 % (38.7-80.0); PLATELET COUNT 390 x10e3/uL (140-360); RED BLOOD COUNT 3.95 x10e6/uL (3.6-5.1); RED CELL DISTRIBUTION WIDTH 14.4 % (11.7-14.4); WHITE BLOOD COUNT 7.32 x10e3/uL (4.8-10.8)
[2024-11-13 05:33] LABS: ANION GAP 15.1 mmol/L (8-16); CREATININE, SERUM 1.44 mg/dL (0.57-1.11); POTASSIUM 5.1 mmol/L (3.5-5.1)
[2024-11-13] MEDS: HYDROCODONE/APAP 5MG-325MG TAB PO PRN (19:40)
[2024-11-14] VITALS (9 sets, daily range): BP systolic 128–161; BP diastolic 57–74; PULSE 83–102; RESP 17–22; TEMP 97.9–98.8; O2SAT 93–100
[2024-11-14] MEDS: HYDROMORPHONE 2MG/ML IV PRN (03:57)
[2024-11-14] MEDS: FUROSEMIDE INJ 10 MG/ML 2 ML VIAL IV ONE (13:30)
[2024-11-14] MEDS: MINERAL OIL 132 ML BTL PR PRN (13:30)
[2024-11-14] MEDS: DOCUSATE SODIUM 100 MG CAP PO PRN (20:33)
[2024-11-14] MEDS: MELATONIN 5 MG TABLET PO PRN (20:34)
[2024-11-14] MEDS: CITRATE OF MAGNESIA 300ML BOTTLE PO ONE (22:33)
[2024-11-14] MEDS: DOCUSATE SODIUM 100 MG CAP PO SCH (22:34)
[2024-11-15] VITALS (9 sets, daily range): BP systolic 125–178; BP diastolic 61–83; PULSE 87–117; RESP 8–20; TEMP 97.7–98.7; O2SAT 92–98
[2024-11-15 05:47] LABS: BASOPHILS # (AUTO) 0.1 (0.0-0.1); BASOPHILS % 0.8 % (0.0-1.0); EOSINOPHILS # (AUTO) 0.3 (0.0-0.4); EOSINOPHILS % 2.6 % (0.0-6.0); HEMATOCRIT 34.4 % (34.2-44.1); HEMOGLOBIN 11.1 g/dL (12.0-16.0); LYMPHOCYTES # (AUTO) 2.3 (1.0-3.2); LYMPHOCYTES % 23.7 % (18.0-39.1); MEAN CORPUSCULAR HGB CONC 32.3 g/dL (31-35); MEAN CORPUSCULAR VOLUME 86.6 fL (81-99); MONOCYTES # (AUTO) 0.7 (0.2-0.8); MONOCYTES % 7.5 % (4.4-11.3); NEUTROPHILS # (AUTO) 6.3 (2.1-6.9); NEUTROPHILS % 64.8 % (38.7-80.0); PLATELET COUNT 445 x10e3/uL (140-360); RED BLOOD COUNT 3.97 x10e6/uL (3.6-5.1); WHITE BLOOD COUNT 9.75 x10e3/uL (4.8-10.8)
[2024-11-15 06:16] LABS: ANION GAP 14.7 mmol/L (8-16); CALCIUM 8.6 mg/dL (8.4-10.2); CREATININE, SERUM 1.02 mg/dL (0.57-1.11); POTASSIUM 3.7 mmol/L (3.5-5.1)
[2024-11-15] MEDS: PEG (High)/E-LYTE SOLN 4,000 ML BTL PO ONE (12:54)
[2024-11-15] MEDS: SODIUM CHLORIDE 0.9% 250ML 250 ML ONE (12:54)
[2024-11-15] MEDS: SIMETHICONE 80 MG CHEW PO SCH (16:34)
[2024-11-15] MEDS: BISACODYL 10 MG SUPP PR SCH (16:34)
[2024-11-15] MEDS ORDERED: APIXABAN 5 MG TABLET PO SCH (21:00)
[2024-11-15] MEDS ORDERED: SODIUM CHLORIDE 0.9% 100 ML ONE (22:48)
[2024-11-16] VITALS (8 sets, daily range): BP systolic 93–169; BP diastolic 52–81; PULSE 91–119; RESP 16–22; TEMP 97.6–99.2; O2SAT 92–96
[2024-11-16] MEDS: METOPROLOL SUCCINATE 25 MG TAB XL PO SCH (14:30)
[2024-11-16] MEDS: MINERAL OIL 132 ML BTL PR ONE (20:46)
[2024-11-17] VITALS (8 sets, daily range): BP systolic 101–153; BP diastolic 44–76; PULSE 76–101; RESP 18–22; TEMP 97.8–99; O2SAT 94–98
[2024-11-17] MEDS: METOCLOPRAMIDE HCL 10 MG/2ML VIAL IV SCH (01:01)
[2024-11-17] MEDS ORDERED: ALBUMIN 25% 25GM 100ML 100 ML ONE (01:18)
[2024-11-17] MEDS: ALBUMIN 25% 25GM 100ML 0.25 GM/ML BTL IV ONE (01:20)
[2024-11-17] MEDS ORDERED: ALBUMIN 25% 25GM 100ML 0.25 GM/ML BTL IV SCH (07:00)
[2024-11-17] MEDS: ALBUMIN 25% 25GM 100ML 100 ML IV SCH (08:28)
[2024-11-17 11:30] LABS: BASOPHILS % 0.3 % (0.0-1.0); EOSINOPHILS # (AUTO) 0.2 (0.0-0.4); EOSINOPHILS % 2.4 % (0.0-6.0); HEMATOCRIT 29.5 % (34.2-44.1); HEMOGLOBIN 9.2 g/dL (12.0-16.0); LYMPHOCYTES # (AUTO) 1.9 (1.0-3.2); LYMPHOCYTES % 20.7 % (18.0-39.1); MEAN CORPUSCULAR HGB CONC 31.2 g/dL (31-35); MEAN CORPUSCULAR VOLUME 89.7 fL (81-99); MONOCYTES # (AUTO) 0.8 (0.2-0.8); MONOCYTES % 9.4 % (4.4-11.3); NEUTROPHILS % 66.8 % (38.7-80.0); PLATELET COUNT 316 x10e3/uL (140-360); RED BLOOD COUNT 3.29 x10e6/uL (3.6-5.1); WHITE BLOOD COUNT 8.92 x10e3/uL (4.8-10.8)
[2024-11-17 16:53] LABS: CALCIUM IONIZED 1.1 mmol/L (1.09-1.30)
[2024-11-17 17:07] LABS: MAGNESIUM 1.8 MG/DL (1.3-2.1)
[2024-11-17 17:08] LABS: POTASSIUM 3.1 mmol/L (3.5-5.1)
[2024-11-17] MEDS: POTASSIUM CHLORIDE 20 MEQ TAB CR PO STA (17:32)
[2024-11-17] MEDS: IRON-VITAMIN-MINERAL CAPSULE PO SCH (17:33)
[2024-11-17 19:10] LABS: CALCIUM 8.7 mg/dL (8.7-10.3)
[2024-11-18 06:26] LABS: ABG HCO3 20 mmol/L (22-26); ABG PCO2 37 mmHg (35-45); ABG PH 7.34 (7.35-7.45); ABG PO2 47 mmHg (80-105); ABG TCO2 21
== END 2024-11-17 21:12 | DRG 853 ==
LOC: ER 10:45 → ERHOLD 15:56 → ICU 17:04 → MED/SURG3 11-08 15:45
PROVIDERS: ADMIT Internal Medicine; ATTEND Internal Medicine
PROC: 3E03329 Introduction of Other Anti-infective into Peripheral Vein, Percutaneous Approach (ICD-10-PCS; 2024-10-31)
PROC: 4A033R1 Measurement of Arterial Saturation, Peripheral, Percutaneous Approach (ICD-10-PCS; 2024-10-31)
PROC: 3E033XZ Introduction of Vasopressor into Peripheral Vein, Percutaneous Approach (ICD-10-PCS; principal; 2024-11-01)
PROC: 0T9430Z Drainage of Left Kidney Pelvis with Drainage Device, Percutaneous Approach (ICD-10-PCS; 2024-11-01)
PROC: 05HB33Z Insertion of Infusion Device into Right Basilic Vein, Percutaneous Approach (ICD-10-PCS; 2024-11-05)
PROC: 0TCB8ZZ Extirpation of Matter from Bladder, Via Natural or Artificial Opening Endoscopic (ICD-10-PCS; 2024-11-11)
PROC: 0T788DZ Dilation of Bilateral Ureters with Intraluminal Device, Via Natural or Artificial Opening Endoscopic (ICD-10-PCS; 2024-11-12)
PROC: 0TP5X0Z Removal of Drainage Device from Kidney, External Approach (ICD-10-PCS; 2024-11-12)
PROC: 0TC78ZZ Extirpation of Matter from Left Ureter, Via Natural or Artificial Opening Endoscopic (ICD-10-PCS; 2024-11-12)
PROC: BT141ZZ Fluoroscopy of Kidneys, Ureters and Bladder using Low Osmolar Contrast (ICD-10-PCS; 2024-11-12)
PROC: 0TC78ZZ Extirpation of Matter from Left Ureter, Via Natural or Artificial Opening Endoscopic (ICD-10-PCS; 2024-11-12)
PROC: 0UJH7ZZ Inspection of Vagina and Cul-de-sac, Via Natural or Artificial Opening (ICD-10-PCS; 2024-11-12)
PROC: 05HC33Z Insertion of Infusion Device into Left Basilic Vein, Percutaneous Approach (ICD-10-PCS; 2024-11-13)
PROC: 4A033R1 Measurement of Arterial Saturation, Peripheral, Percutaneous Approach (ICD-10-PCS; 2024-11-17)
DX: A41.51 Sepsis due to Escherichia coli [E. coli] (principal); R65.21 Severe sepsis with septic shock; N13.6 Pyonephrosis; Z68.44 Body mass index [BMI] 60.0-69.9, adult; N17.9 Acute kidney failure, unspecified; E87.20 Acidosis, unspecified; K56.7 Ileus, unspecified; Z16.22 Resistance to vancomycin related antibiotics; D68.32 Hemorrhagic disorder due to extrinsic circulating anticoagulants; D62 Acute posthemorrhagic anemia; R31.0 Gross hematuria; I12.9 Hypertensive chronic kidney disease with stage 1 through stage 4 chronic kidney disease, or unspecified chronic kidney disease; E11.22 Type 2 diabetes mellitus with diabetic chronic kidney disease; N18.9 Chronic kidney disease, unspecified; E11.40 Type 2 diabetes mellitus with diabetic neuropathy, unspecified; E88.09 Other disorders of plasma-protein metabolism, not elsewhere classified; K59.00 Constipation, unspecified; R33.9 Retention of urine, unspecified; B96.89 Other specified bacterial agents as the cause of diseases classified elsewhere; D69.6 Thrombocytopenia, unspecified; T45.515A Adverse effect of anticoagulants, initial encounter; Y92.230 Patient room in hospital as the place of occurrence of the external cause; E87.5 Hyperkalemia; E03.9 Hypothyroidism, unspecified; I95.9 Hypotension, unspecified; E87.6 Hypokalemia; E66.01 Morbid (severe) obesity due to excess calories; Z71.3 Dietary counseling and surveillance; K21.9 Gastro-esophageal reflux disease without esophagitis; E27.9 Disorder of adrenal gland, unspecified; M06.9 Rheumatoid arthritis, unspecified; Z86.711 Personal history of pulmonary embolism; Z95.828 Presence of other vascular implants and grafts; Z79.01 Long term (current) use of anticoagulants; Z86.718 Personal history of other venous thrombosis and embolism; Z79.899 Other long term (current) drug therapy; N95.2 Postmenopausal atrophic vaginitis; N20.0 Calculus of kidney
CPT/HCPCS: 36415; 36568; 36600; 50432; 51700; 70450; 71045; 71275; 74018; 74019; 74174; 74176; 74420; 74470; 76942; 80048; 80053; 80320; 80329; 81001; 81015; 82550; 82607; 82728; 82746; 82805; 82948; 83540; 83605; 83615; 83690; 83735; 83970; 84100; 84132; 84466; 84484; 84550; 85025; 85045; 85610; 85730; 87040; 87071; 87086; 87186; 87205; 87324; 87449; 88300; 93005; 93970; 94760; 94799; 96372; 99152; 99153; 99252; 99285; C1729; C1758; C1769; C2617; J0330; J0690; J0692; J0696; J1100; J1171; J1200; J1308; J1580; J1650; J1885; J1938; J1940; J2003; J2185; J2250; J2371; J2405; J2470; J2765; J2916; J3475; J3480; J7030; J7050; J7070; P9047; Q9967

== ENCOUNTER 2025-01-25 17:02 | Inpatient (IN) | payer MEDICARE, OTHER ==
[~2025-01-25] VITALS: Ht 160 cm; Wt 154.2 kg
[2025-01-25 19:13] LABS: LEUKOCYTE ESTERASE ,URINE LARGE (NEGATIVE); PROTEIN,URINE DIPSTICK 2+ (NEGATIVE); URINE UROBILINOGEN 0.2 mg/dL (0.2 - 1)
[2025-01-25 19:27] LABS: EPITHELIAL CELLS,URINE FEW /LPF
[2025-01-25 19:41] LABS: BASOPHILS % 0.5 % (0.0-1.0); EOSINOPHILS % 3.8 % (0.0-6.0); LYMPHOCYTES % 25.2 % (18.0-39.1); MONOCYTES % 4.3 % (4.4-11.3); NEUTROPHILS % 65.9 % (38.7-80.0); RED CELL DISTRIBUTION WIDTH 15.4 % (11.7-14.4)
[2025-01-25 20:04] LABS: EST GLOMERULAR FILTRATION RATE 66.0 ML/MIN (>=60)
[2025-01-25] MEDS ORDERED: DEXTROSE 50% SYRINGE 50 ML IV PRN (20:30)
[2025-01-25] MEDS: INSULIN REGULAR, HUMAN 100 UNIT/1 ML SQ SCH (21:00)
[2025-01-25 21:30] VITALS: PULSE 74; RESP 18; TEMP 98.6
[2025-01-25] MEDS: SODIUM CHLORIDE 0.9% 1000ML 1,000 ML IV ONE (21:54)
[2025-01-25] MEDS: SODIUM CHLORIDE 0.9% 1000ML 1,000 ML IV SCH (21:55)
[2025-01-25 22:00] VITALS: BP 120/52; PULSE 74; RESP 18; TEMP 98.6; O2SAT 100
[2025-01-25 23:31] VITALS: PULSE 74; RESP 17; O2SAT 100
[2025-01-26] VITALS (11 sets, daily range): BP systolic 111–144; BP diastolic 46–63; PULSE 69–81; RESP 16–22; TEMP 97.7–98.7; O2SAT 93–100
[2025-01-26] MEDS ORDERED: OMEPRAZOLE20 MG (03:17)
[2025-01-26] MEDS ORDERED: ATORVASTATIN CA40 MG (03:17)
[2025-01-26] MEDS ORDERED: GABAPENTIN300 MG PO (03:19)
[2025-01-26 05:25] LABS: BASOPHILS % 0.2 % (0.0-1.0); EOSINOPHILS % 4.0 % (0.0-6.0); LYMPHOCYTES % 29.5 % (18.0-39.1); MONOCYTES % 5.1 % (4.4-11.3); NEUTROPHILS % 60.9 % (38.7-80.0); RED CELL DISTRIBUTION WIDTH 15.5 % (11.7-14.4)
[2025-01-26 05:54] LABS: EST GLOMERULAR FILTRATION RATE 62.0 ML/MIN (>=60)
[2025-01-26] MEDS: ACETAMINOPHEN 325 MG TAB PO PRN (06:00)
[2025-01-26] MEDS: GABAPENTIN 300 MG CAP ONE (13:53)
[2025-01-26] MEDS: GABAPENTIN 300 MG CAP PO SCH ×2 (13:53→21:47)
[2025-01-26] MEDS: GABAPENTIN 300 MG CAP PO ONE (14:26)
[2025-01-26] MEDS ORDERED: NYSTATIN 15 GM POWDER UD BTL TOP SCH (17:00)
[2025-01-26] MEDS: NYSTATIN 15 GM POWDER UD BTL TOP SCH (21:00)
[2025-01-26] MEDS ORDERED: GABAPENTIN 300 MG CAP PO SCH (21:00)
[2025-01-26] MEDS: ATORVASTATIN 40 MG TAB PO SCH (21:47)
[2025-01-26] MEDS: TRAMADOL HCL 50 MG TAB PO PRN (22:33)
[2025-01-27] VITALS (9 sets, daily range): BP systolic 129–159; BP diastolic 45–69; PULSE 64–97; RESP 18–22; TEMP 98–98.9; O2SAT 94–100
[2025-01-27] MEDS: PANTOPRAZOLE SOD 40 MG TABEC PO SCH (06:10)
[2025-01-27] MEDS: METOPROLOL SUCCINATE 25 MG TAB XL PO SCH (08:53)
[2025-01-28] VITALS (10 sets, daily range): BP systolic 111–139; BP diastolic 46–97; PULSE 63–74; RESP 12–22; TEMP 97.6–98.8; O2SAT 94–100
[2025-01-29] VITALS (8 sets, daily range): BP systolic 114–138; BP diastolic 53–58; PULSE 63–78; RESP 17–18; TEMP 97.7–98.5; O2SAT 92–100
[2025-01-29 07:32] LABS: BASOPHILS % 0.5 % (0.0-1.0); EOSINOPHILS % 5.0 % (0.0-6.0); LYMPHOCYTES % 30.8 % (18.0-39.1); MONOCYTES % 4.9 % (4.4-11.3); NEUTROPHILS % 58.4 % (38.7-80.0); RED CELL DISTRIBUTION WIDTH 15.5 % (11.7-14.4)
[2025-01-29 07:55] LABS: EST GLOMERULAR FILTRATION RATE 65.0 ML/MIN (>=60)
[2025-01-30] VITALS (10 sets, daily range): BP systolic 115–159; BP diastolic 46–63; PULSE 60–74; RESP 18; TEMP 97.4–98.5; O2SAT 96–100
[2025-01-31] VITALS (10 sets, daily range): BP systolic 117–137; BP diastolic 54–60; PULSE 57–65; RESP 17–18; TEMP 97.5–97.9; O2SAT 94–98
[2025-01-31 05:12] LABS: BASOPHILS % 0.4 % (0.0-1.0); EOSINOPHILS % 3.9 % (0.0-6.0); LYMPHOCYTES % 32.6 % (18.0-39.1); MONOCYTES % 4.7 % (4.4-11.3); NEUTROPHILS % 58.0 % (38.7-80.0); RED CELL DISTRIBUTION WIDTH 15.8 % (11.7-14.4)
[2025-01-31 05:41] LABS: EST GLOMERULAR FILTRATION RATE 57.0 ML/MIN (>=60); PHOSPHORUS 3.8 MG/DL (2.3-4.7)
[2025-01-31] MEDS: SODIUM CHLORIDE 0.9% 1000ML 1,000 ML IV SCH (09:14)
[2025-02-01 03:21] VITALS: BP 125/59; PULSE 81; RESP 20; TEMP 97.4; O2SAT 98
[2025-02-01 05:18] LABS: BASOPHILS % 0.5 % (0.0-1.0); EOSINOPHILS % 4.6 % (0.0-6.0); LYMPHOCYTES % 25.3 % (18.0-39.1); MONOCYTES % 5.6 % (4.4-11.3); NEUTROPHILS % 63.6 % (38.7-80.0); RED CELL DISTRIBUTION WIDTH 15.6 % (11.7-14.4)
[2025-02-01 05:42] LABS: EST GLOMERULAR FILTRATION RATE 51.0 ML/MIN (>=60)
[2025-02-01] MEDS ORDERED: LIDOCAINE HCL 2% LOCAL INJ 5 ML SDV VIAL INJ ONE (06:51)
[2025-02-01] MEDS ORDERED: MIDAZOLAM HCL 2 MG/2 ML VIAL ONE (06:52)
[2025-02-01] MEDS ORDERED: PROPOFOL IV EMULSION 10 MG/ML 20 ML VIAL ONE ×2 (06:52→07:41)
[2025-02-01] MEDS ORDERED: FENTANYL CITRATE/PF 100MCG/2 ML INJ ONE (06:52)
[2025-02-01 07:03] VITALS: PULSE 63; RESP 21; O2SAT 96
[2025-02-01] MEDS ORDERED: ONDANSETRON HCL INJ 2MG/ML 2ML 2 MG/ML VIAL ONE (07:09)
[2025-02-01 09:00] VITALS: BP 132/64; PULSE 62; RESP 14; TEMP 98.7; O2SAT 96
[2025-02-01] MEDS ORDERED: PHENAZOPYRIDINE HCL 100 MG TAB PO PRN (09:00)
[2025-02-01 11:35] VITALS: BP 132/62; PULSE 69; RESP 19; TEMP 98; O2SAT 96
[2025-02-01 16:18] VITALS: BP 134/53; PULSE 66; RESP 19; TEMP 98; O2SAT 99
[2025-02-01] MEDS: Morphine 4mg INJECTION 4 MG/ML INJ IV PRN (16:34)
[2025-02-01 20:00] VITALS: BP 137/58; PULSE 69; RESP 18; TEMP 98.2; O2SAT 99
[2025-02-02] VITALS (8 sets, daily range): BP systolic 106–137; BP diastolic 48–58; PULSE 68–88; RESP 17–19; TEMP 97.5–98.6; O2SAT 92–99
[2025-02-02] MEDS: CIPROFLOXACIN 500 MG TAB PO SCH (17:19)
[2025-02-02] MEDS: AMOXICILLIN/CLAVULANATE K 875 MG TAB PO SCH (17:19)
[2025-02-03] VITALS: BP 108/50; PULSE 69; RESP 20; TEMP 98.6; O2SAT 100
[2025-02-03] MEDS: TRAMADOL HCL 50 MG TAB PO PRN (02:02)
[2025-02-03 08:00] VITALS: BP 117/77; PULSE 67; RESP 17; TEMP 98.6; O2SAT 97
[2025-02-03 09:27] VITALS: BP 117/77; PULSE 67; RESP 17; TEMP 98.6; O2SAT 97
[2025-02-03] MEDS: NITROFURANTOIN MACROCRYSTALS 100 MG CAP PO SCH (10:12)
[2025-02-03 10:28] VITALS: PULSE 67; RESP 18; O2SAT 97
[2025-02-03 12:10] VITALS: BP 143/70; PULSE 87; RESP 20; TEMP 99.4; O2SAT 100
[2025-02-03] MEDS ORDERED: AUGMENTIN 500-1 EACH PO (14:20)
[2025-02-03] MEDS ORDERED: CIPRO500 MG PO (14:20)
== END 2025-02-03 13:15 | disposition home health service (06) | DRG 699 ==
LOC: ER 19:18 → ERHOLD 20:18 → MED/SURG 22:50
PROVIDERS: ADMIT Internal Medicine; ATTEND Internal Medicine
PROC: 0TP98DZ Removal of Intraluminal Device from Ureter, Via Natural or Artificial Opening Endoscopic (ICD-10-PCS; 2025-02-01)
PROC: 0TC68ZZ Extirpation of Matter from Right Ureter, Via Natural or Artificial Opening Endoscopic (ICD-10-PCS; 2025-02-01)
PROC: 0TC78ZZ Extirpation of Matter from Left Ureter, Via Natural or Artificial Opening Endoscopic (ICD-10-PCS; 2025-02-01)
PROC: 0UJH7ZZ Inspection of Vagina and Cul-de-sac, Via Natural or Artificial Opening (ICD-10-PCS; 2025-02-01)
PROC: BT161ZZ Fluoroscopy of Right Ureter using Low Osmolar Contrast (ICD-10-PCS; 2025-02-01)
PROC: BT171ZZ Fluoroscopy of Left Ureter using Low Osmolar Contrast (ICD-10-PCS; 2025-02-01)
PROC: 0TP98DZ Removal of Intraluminal Device from Ureter, Via Natural or Artificial Opening Endoscopic (ICD-10-PCS; principal; 2025-02-01 07:22)
DX: T83.598A Infection and inflammatory reaction due to other prosthetic device, implant and graft in urinary system, initial encounter (principal); D68.9 Coagulation defect, unspecified; N39.0 Urinary tract infection, site not specified; Z16.24 Resistance to multiple antibiotics; N17.9 Acute kidney failure, unspecified; E66.01 Morbid (severe) obesity due to excess calories; Z68.44 Body mass index [BMI] 60.0-69.9, adult; B95.2 Enterococcus as the cause of diseases classified elsewhere; E11.40 Type 2 diabetes mellitus with diabetic neuropathy, unspecified; B95.5 Unspecified streptococcus as the cause of diseases classified elsewhere; E11.65 Type 2 diabetes mellitus with hyperglycemia; I10 Essential (primary) hypertension; F41.9 Anxiety disorder, unspecified; F32.A Depression, unspecified; M06.9 Rheumatoid arthritis, unspecified; E03.9 Hypothyroidism, unspecified; M19.90 Unspecified osteoarthritis, unspecified site; N32.81 Overactive bladder; R31.0 Gross hematuria; R32 Unspecified urinary incontinence; Z79.4 Long term (current) use of insulin; Z96.0 Presence of urogenital implants; Y83.1 Surgical operation with implant of artificial internal device as the cause of abnormal reaction of the patient, or of later complication, without mention of misadventure at the time of the procedure; Z86.718 Personal history of other venous thrombosis and embolism; Z88.1 Allergy status to other antibiotic agents; Z88.2 Allergy status to sulfonamides
CPT/HCPCS: 36415; 74018; 74176; 74420; 80048; 80053; 81001; 82948; 83036; 83735; 83970; 84100; 84550; 85025; 87086; 87186; 88300; 94799; 96372; 99252; 99284; C1758; C1769; J2003; J2250; J2270; J2405; J2470; J2543; J7030

== ENCOUNTER 2025-02-05 00:44 | Inpatient (IN) | payer MEDICARE, OTHER ==
[2025-02-05] VITALS (11 sets, daily range): BP systolic 106–134; BP diastolic 46–67; PULSE 65–88; RESP 16–20; TEMP 97.7–99.7; O2SAT 95–100
[~2025-02-05] VITALS: Ht 160 cm; Wt 154.2 kg
[~2025-02-05 00:44] MED LIST changes: +ATORVASTATIN CA40 MG; +AUGMENTIN 500-1 EACH PO; +CIPRO500 MG PO; +GABAPENTIN300 MG PO; +OMEPRAZOLE20 MG
[2025-02-05 02:09] LABS: BASOPHILS % 0.3 % (0.0-1.0); EOSINOPHILS % 2.8 % (0.0-6.0); LYMPHOCYTES % 18.5 % (18.0-39.1); MONOCYTES % 5.0 % (4.4-11.3); NEUTROPHILS % 73.0 % (38.7-80.0); RED CELL DISTRIBUTION WIDTH 15.6 % (11.7-14.4)
[2025-02-05 02:35] LABS: EST GLOMERULAR FILTRATION RATE 49.0 ML/MIN (>=60)
[2025-02-05] MEDS ORDERED: DEXTROSE 50% SYRINGE 50 ML IV PRN (04:30)
[2025-02-05] MEDS ORDERED: ONDANSETRON HCL INJ 2MG/ML 2ML 2 MG/ML VIAL IV PRN (04:30)
[2025-02-05] MEDS ORDERED: SODIUM CHLORIDE FLUSH 10 ML SYR INJ PRN (04:30)
[2025-02-05 04:54] LABS: LEUKOCYTE ESTERASE ,URINE 1+ (NEGATIVE); PROTEIN,URINE DIPSTICK 2+ (NEGATIVE); URINE UROBILINOGEN 0.2 mg/dL (0.2 - 1)
[2025-02-05 05:06] LABS: EPITHELIAL CELLS,URINE MODERATE /LPF; WBC,URINE (MAN) 21-50 /HPF (0-5); YEAST,URINE MANY
[2025-02-05] MEDS ORDERED: POLYETHYLENE GLYCOL 3350 17 GM PACK PO PRN (07:45)
[2025-02-05] MEDS ORDERED: ACETAMINOPHEN 325 MG TAB PO PRN (07:45)
[2025-02-05] MEDS ORDERED: HYDRALAZINE HCL 20 MG/ML VIAL IV PRN (07:45)
[2025-02-05] MEDS: SODIUM CHLORIDE 0.9% 1000ML 1,000 ML IV SCH (09:17)
[2025-02-05] MEDS: DOCUSATE SODIUM 100 MG CAP PO SCH (09:18)
[2025-02-05] MEDS: INSULIN REGULAR, HUMAN 100 UNIT/1 ML SQ SCH (09:20)
[2025-02-05] MEDS ORDERED: INSULIN AS100 UNIT/2 SC (14:07)
[2025-02-05] MEDS ORDERED: INSULIN DE100 UNIT/2 SC (14:07)
[2025-02-05] MEDS: LINEZOLID 600 MG TAB PO SCH (17:32)
[2025-02-06] VITALS (10 sets, daily range): BP systolic 119–140; BP diastolic 46–64; PULSE 70–82; RESP 18–20; TEMP 97.7–99.4; O2SAT 95–100
[2025-02-06] MEDS ORDERED: PHENAZOPYRIDINE HCL 100 MG TAB PO PRN (01:00)
[2025-02-06] MEDS: PHENAZOPYRIDINE HCL 100 MG TAB PO ONE (03:59)
[2025-02-06] MEDS: PANTOPRAZOLE SODIUM 20 MG TABLET.DR PO SCH (05:22)
[2025-02-06 06:13] LABS: BASOPHILS % 0.4 % (0.0-1.0); EOSINOPHILS % 4.0 % (0.0-6.0); LYMPHOCYTES % 20.5 % (18.0-39.1); MONOCYTES % 5.3 % (4.4-11.3); NEUTROPHILS % 69.3 % (38.7-80.0); RED CELL DISTRIBUTION WIDTH 15.6 % (11.7-14.4)
[2025-02-06 06:43] LABS: EST GLOMERULAR FILTRATION RATE 70.0 ML/MIN (>=60)
[2025-02-06] MEDS: APIXABAN 5 MG TABLET PO SCH (08:45)
[2025-02-06] MEDS: METOPROLOL SUCCINATE 25 MG TAB XL PO SCH (08:47)
[2025-02-06] MEDS: ATORVASTATIN 40 MG TAB PO SCH (20:44)
[2025-02-06] MEDS: GABAPENTIN 300 MG CAP PO SCH (20:44)
[2025-02-06] MEDS: TRAMADOL HCL 50 MG TAB PO PRN (20:45)
[2025-02-07] VITALS (10 sets, daily range): BP systolic 109–165; BP diastolic 51–76; PULSE 69–114; RESP 18–20; TEMP 97.8–98.5; O2SAT 93–100
[2025-02-07 05:31] LABS: BASOPHILS % 0.3 % (0.0-1.0); EOSINOPHILS % 3.6 % (0.0-6.0); LYMPHOCYTES % 20.4 % (18.0-39.1); MONOCYTES % 5.8 % (4.4-11.3); NEUTROPHILS % 69.4 % (38.7-80.0); RED CELL DISTRIBUTION WIDTH 15.5 % (11.7-14.4)
[2025-02-07 06:08] LABS: EST GLOMERULAR FILTRATION RATE 74.0 ML/MIN (>=60)
[2025-02-08] VITALS (12 sets, daily range): BP systolic 111–152; BP diastolic 48–66; PULSE 69–80; RESP 18–20; TEMP 97–98.6; O2SAT 97–100
[2025-02-08 07:13] LABS: BASOPHILS % 0.3 % (0.0-1.0); EOSINOPHILS % 4.4 % (0.0-6.0); LYMPHOCYTES % 20.6 % (18.0-39.1); MONOCYTES % 5.3 % (4.4-11.3); NEUTROPHILS % 69.2 % (38.7-80.0); RED CELL DISTRIBUTION WIDTH 15.1 % (11.7-14.4)
[2025-02-08 07:44] LABS: EST GLOMERULAR FILTRATION RATE 71.0 ML/MIN (>=60)
[2025-02-09] VITALS (9 sets, daily range): BP systolic 118–135; BP diastolic 48–61; PULSE 68–74; RESP 17–20; TEMP 97.5–98.3; O2SAT 94–100
[2025-02-10] VITALS (8 sets, daily range): BP systolic 112–148; BP diastolic 53–63; PULSE 63–76; RESP 18–20; TEMP 97.7–98.2; O2SAT 95–100
[2025-02-11] VITALS (8 sets, daily range): BP systolic 127–140; BP diastolic 45–55; PULSE 67–76; RESP 18–20; TEMP 97.7–98.2; O2SAT 97–100
[2025-02-11] MEDS ORDERED: ONDANSETRON ODT4 MG PO (09:46)
[2025-02-11] MEDS ORDERED: ACETAMINOPHEN325 M1 PO (09:46)
[2025-02-11] MEDS ORDERED: PYRIDIUM100 MG PO ×2 (09:46→09:57)
[2025-02-11] MEDS ORDERED: ZYVOX600 MG PO (09:46)
[2025-02-11] MEDS ORDERED: DIFLUCAN100 MG PO (20:14)
== END 2025-02-11 16:35 | disposition home health service (06) | DRG 690 ==
LOC: ER 01:31 → ERHOLD 04:21 → MED/SURG3 08:24 → OBSVTOIN 02-07 13:02
PROVIDERS: ADMIT Internal Medicine; ATTEND Internal Medicine
DX: N39.0 Urinary tract infection, site not specified (principal); Z16.24 Resistance to multiple antibiotics; Z16.22 Resistance to vancomycin related antibiotics; R62.7 Adult failure to thrive; I10 Essential (primary) hypertension; E03.9 Hypothyroidism, unspecified; E78.5 Hyperlipidemia, unspecified; E66.01 Morbid (severe) obesity due to excess calories; F41.1 Generalized anxiety disorder; M19.90 Unspecified osteoarthritis, unspecified site; M06.9 Rheumatoid arthritis, unspecified; E11.40 Type 2 diabetes mellitus with diabetic neuropathy, unspecified; I89.0 Lymphedema, not elsewhere classified; B96.89 Other specified bacterial agents as the cause of diseases classified elsewhere; E11.65 Type 2 diabetes mellitus with hyperglycemia; F41.8 Other specified anxiety disorders; R53.81 Other malaise; R31.9 Hematuria, unspecified; D64.9 Anemia, unspecified; R26.2 Difficulty in walking, not elsewhere classified; M79.671 Pain in right foot; Z68.44 Body mass index [BMI] 60.0-69.9, adult; Z86.718 Personal history of other venous thrombosis and embolism; Z87.440 Personal history of urinary (tract) infections; Z88.2 Allergy status to sulfonamides; Z88.8 Allergy status to other drugs, medicaments and biological substances; Z63.8 Other specified problems related to primary support group
CPT/HCPCS: 36415; 74176; 80048; 80053; 81001; 82550; 82948; 83690; 84484; 85025; 93005; 93925; 94799; 99284; G0378; J7030